=== PATIENT | male | born 1975 | race American Indian/Alaskan Native ===

== ENCOUNTER 2020-05-24 19:39 | Emergency (ER) | payer OTHER ==
[2020-05-24] MEDS ORDERED: SODIUM CHLORIDE 0.9% 1000 ML 1,000 ML IV ONE ×2 (20:35→23:37)
[2020-05-24] MEDS ORDERED: ONDANSETRON 4 MG/2 ML INJ IV ONE (20:38)
--- NOTE | 2020-05-24 20:40 | Emergency Department Report ---
ED General Adult HPI - General Chief complaint: Dizziness Stated complaint: DIZZINESS Time Seen by Provider: 05/24/20 20:28 Source: patient Mode of arrival: Stretcher Limitations: No Limitations - History of Present Illness Initial comments: Patient is 44 years old male with history of hypertension. Patient brought to the emergency room via EMS from home for evaluation of dizziness that started this afternoon. Patient stated that he came from work he felt very hot and he started becoming dizzy. EMS stated that patient initial blood pressure was 8 8/55. Patient stated that he vomited 3 times prior to EMS arrival. Patient denied any chest pain, shortness of breath, fever or chills. Patient is complaining of crampy abdominal pain, diffuse with no radiation. Patient stated that he had a similar episode in July of last year and he was diagnosed with food poisoning. - Related Data Allergies Allergy/AdvReac Type Severity Reaction Status Date / Time No Known Allergies Allergy Unverified 05/24/20 19:59 ED Review of Systems ROS: Stated complaint: DIZZINESS Other details as noted in HPI Comment: All other systems reviewed and negative Constitutional: denies: chills, fever Respiratory: denies: cough, orthopnea Cardiovascular: denies: chest pain, palpitations Gastrointestinal: abdominal pain, nausea, vomiting. denies: diarrhea, constipation, hematemesis, melena, hematochezia Musculoskeletal: denies: back pain Neurological: denies: headache, weakness, numbness, paresthesias, confusion ED Past Medical Hx - Past Medical History Previous Medical History?: No - Surgical History Past Surgical History?: No - Social History Smoking Status: Current Every Day Smoker Substance Use Type: None ED Physical Exam - General Limitations: No Limitations General appearance: alert, in no apparent distress - Head Head exam: Present: atraumatic, normocephalic, normal inspection - Eye Eye exam: Present: normal appearance, PERRL - ENT ENT exam: Present: mucous membranes dry - Neck Neck exam: Present: normal inspection, full ROM. Absent: tenderness, meningismus, lymphadenopathy, thyromegaly - Respiratory Respiratory exam: Present: normal lung sounds bilaterally - Cardiovascular Cardiovascular Exam: Present: regular rate, normal rhythm, normal heart sounds - GI/Abdominal GI/Abdominal exam: Present: soft, normal bowel sounds. Absent: distended, tenderness, guarding, rebound, rigid, organomegaly, mass, bruit, pulsatile mass, hernia - Extremities Exam Extremities exam: Present: normal inspection, full ROM, normal capillary refill. Absent: tenderness, pedal edema, joint swelling, calf tenderness - Back Exam Back exam: Present: normal inspection, full ROM. Absent: CVA tenderness (R), CVA tenderness (L) - Neurological Exam Neurological exam: Present: alert, oriented X3, CN II-XII intact, normal gait, reflexes normal. Absent: motor sensory deficit - Psychiatric Psychiatric exam: Present: normal mood - Skin Skin exam: Present: warm, intact, normal color ED Course Vital Signs 05/24/20 05/24/20 05/24/20 19:51 20:55 21:15 Temperature 98.7 F Pulse Rate 90 75 73 Respiratory 16 18 15 Rate Blood Pressure 103/69 150/83 Blood Pressure 142/84 [Right] O2 Sat by Pulse 100 100 95 Oximetry 05/24/20 05/24/20 05/24/20 21:30 22:03 22:15 Temperature Pulse Rate 73 90 77 Respiratory 13 13 14 Rate Blood Pressure 156/80 156/84 144/88 Blood Pressure [Right] O2 Sat by Pulse 96 99 99 Oximetry 05/24/20 05/24/20 05/24/20 22:30 22:45 23:01 Temperature Pulse Rate 83 79 Respiratory 18 17 15 Rate Blood Pressure 144/87 145/87 143/65 Blood Pressure [Right] O2 Sat by Pulse 97 97 97 Oximetry 05/24/20 05/24/20 23:30 23:45 Temperature Pulse Rate Respiratory 13 15 Rate Blood Pressure 134/86 133/83 Blood Pressure [Right] O2 Sat by Pulse 99 94 Oximetry ED Medical Decision Making - Lab Data Result diagrams: 05/24/20 20:06 05/24/20 20:06 - Radiology Data Radiology results: report reviewed - Medical Decision Making Patient is 44 years old male with history of hypertension. Patient brought to the emergency room via EMS from home for evaluation of dizziness that started this afternoon. Patient stated that he came from work he felt very hot and he started becoming dizzy. EMS stated that patient initial blood pressure was 88/5 5. Patient stated that he vomited 3 times prior to EMS arrival. Patient denied any chest pain, shortness of breath, fever or chills. Patient is complaining of crampy abdominal pain, diffuse with no radiation. Patient stated that he had a similar episode in July of last year and he was diagnosed with food poisoning. Patient found to be really dehydrated. Patient received 3 L of normal saline with significant improvement in his symptoms. Patient stated that his dizziness is completely resolved. Labs reviewed and showed elevated white blood cells of 13,000. Patient received CT abdomen and pelvis with IV contrast that showed severe enteritis. Patient received Zosyn and Zofran. Patient lactic acid now is 1. Patient stated that he is feeling much better. Patient will be discharg ed home to follow-up with his primary care doctor in the next 2 to 3 days and to return to the ER if he develop any new symptoms, Critical care attestation.: If time is entered above; I have spent that time in minutes in the direct care of this critically ill patient, excluding procedure time. ED Disposition Clinical Impression: Hypotension, Abdominal pain, Enteritis Disposition: DC-01 TO HOME OR SELFCARE Is pt being admited?: No Condition: Stable Instructions: Infectious Colitis (ED), Abdominal Pain (ED) Referrals: PRIMARY CARE, [Primary Care Provider] - 3-5 Days
[2020-05-24 20:41] LABS: Hematocrit 48.5 % (35.5-45.6); Hemoglobin 16.3 gm/dl (11.8-15.2); Mean Corpuscular HGB Conc 34 % (32-34); Mean Corpuscular Volume 102 fl (84-94); Platelet Count 280 K/mm3 (140-440); Red Blood Count 4.78 M/mm3 (3.65-5.03); Red Cell Distribution Width 14.9 % (13.2-15.2)
[2020-05-24 20:44] LABS: BUN/Creatinine Ratio 11; Blood Urea Nitrogen 9 mg/dL (9-20); Calcium 8.7 mg/dL (8.4-10.2); Hemolysis Index 29
[2020-05-24 21:25] LABS: Basophils % (Manual) 0 % (0.0-1.8); Eosinophils % (Manual) 0 % (0.0-4.3); RBC Morphology Normal; Total Cells Counted 100
--- NOTE | 2020-05-24 22:25 | Cat Scan Report ---
CT ABDOMEN AND PELVIS WITH CONTRAST INDICATION / CLINICAL INFORMATION: abdominal pain. TECHNIQUE: Axial CT images were obtained through the abdomen and pelvis following the administration of intraven ous contrast. All CT scans at this location are performed using CT dose reduction for ALARA by means of automated exposure control. COMPARISON: None available. FINDINGS: LOWER CHEST: No significant abnormality. LIVER: No significant abnormality. GALLBLADDER: No significant abnormality. PANCREAS: No significant abnormality. SPLEEN: No significant abnormality. ADRENALS: No significant abnormality. KIDNEYS / URETERS: There is a masslike, slightly hypoattenuating region within the right renal medull a measuring approximately 3.0 x 4.7 x 3.2 cm. There is mild cystic change adjacent to this. Punctate nonobstructing nephrolithiasis is seen bilaterally. URINARY BLADDER: No significant abnormality. REPRODUCTIVE ORGANS: No significant abnormality. STOMACH / SMALL BOWEL: Small hiatal hernia. There are multiple loops of small bowel which demonstrate mucosal edema and hyperemia within the lower abdomen. COLON: Extensive ascending and transverse colonic diverticulosis. APPENDIX: No significant abnormality. PERITONEUM: Moderate volume free fluid, located in the perisplenic, perihepatic, and pelvic regions. No free air. No fluid collection. LYMPH NODES: No significant adenopathy. AORTA / ARTERIES: No significant abnormality. IVC / VEINS: No significant abnormality. SKELETAL SYSTEM: No significant abnormality. ADDITIONAL FINDINGS: None. IMPRESSION: 1. Multiple loops of small bowel which demonstrate hyperemia and mucosal thickening and are concernin g for a severe enteritis. Inflammatory and infectious etiologies should be considered. 2. Moderate volume intra-abdominal ascites. 3. Extensive ascending and transverse colonic diverticulosis. 4. Questionable right renal mass. Ultrasound evaluation is recommended for further characterization. 5. Punctate bilateral nonobstructing nephrolithiasis. Signer Name: Dustin Scott MD Signed: 05/24/2020 10:20 PM Workstation Name: [id number]
[2020-05-24] MEDS ORDERED: PIPERACILLIN/TAZOBACTAM 3.375 3.375 GM/50 ML BAG IV ONE (22:43)
[2020-05-24 22:50] LABS: Bilirubin,Urine NEG (Negative); Blood,Urine NEG (Negative); Color,Urine Amber (Yellow); Mucus,Urine 1+ /HPF
[2020-05-25 01:00] VITALS: BP 159/90
== END 2020-05-25 01:00 | disposition home or self-care (01) ==
LOC: ED 19:39
DX: I95.9 Hypotension, unspecified (principal); K52.9 Noninfective gastroenteritis and colitis, unspecified; F17.200 Nicotine dependence, unspecified, uncomplicated; Z79.899 Other long term (current) drug therapy
CPT/HCPCS: 36415; 74177; 80048; 81001; 82140; 82550; 84484; 85007; 85025; 87040; 96361; 96365; 96375; 99284; J2405; J2543; J7030; Q9967; 93005